=== PATIENT | female | born 1985 | race Caucasian/White ===

== ENCOUNTER 2016-11-25 | Emergency (ER) | payer OTHER | END 2016-11-25 14:03 | disposition home or self-care (01) ==

== ENCOUNTER 2017-04-07 21:12 | Outpatient (CLI) | payer OTHER | END 2017-04-07 21:13 | disposition critical access hospital (66) | LOC: EMS 21:12 | PROVIDERS: ATTEND Surgery | DX: R42 Dizziness and giddiness (principal); R06.02 Shortness of breath | CPT/HCPCS: A0425; A0427 ==

== ENCOUNTER 2017-04-07 21:31 | Emergency (ER) | payer OTHER ==
[2017-04-07] MEDS ORDERED: methylPREDNISolone SUCCINATE 125 MG/2 ML VIAL IVP STA (22:50)
--- NOTE | 2017-04-07 22:50 | ED Physician Documentation ---
History of Present Illness - Stated complaint Stated Complaint: ALLERGIC RXN - Chief complaint Chief Complaint: Resp - History obtained from History obtained from: Patient, EMS - History of Present Illness Timing: Enter time (20:45), Today Pain level now: 0 Improved by: improved subsequent to use of epi-pen - Additonal information Additional information: while in a class this evening, patient experienced sudden onset lightheadedness , dizziness, decreased vision ("black spots", per patient), generalized pruritis and generalized skin erythema. Patient says this was all c/w previous allergic reactions (unclear what she might have been reacting to tonight, although patient suspects it was due to dust), and thus patient self- administered epi-pen with substantial improvement in symptoms. Denies dyspnea, had mild chest tightness which has resolved. Review of Systems Eyes: reports: Decreased vision Cardiac: reports: Chest pain / pressure (resolved). denies: Palpitations Respiratory: denies: Dyspnea GI: denies: Abdominal Pain, Nausea, Vomiting Neurologic: reports: Generalized weakness, Near syncope. denies: Focal weakness , Numbness, Syncope, Headache PD PAST MEDICAL HISTORY - Past Medical History Endocrine/Autoimmune: HyPOthyroidism Other Past Medical History: carmen dz, exercise induced asthma - Past Surgical History Past Surgical History: Yes HEENT: Tonsil/Adenoidectomy - Present Medications Home Medications: Ambulatory Orders Medication Instructions Recorded Confirmed Amox/Clav 875/125 [Augmentin] 1 each PO Q12H 14 Days 11/25/16 Azelastine HCl 11/25/16 Cetirizine [ZyrTEC] 1 tab PO DAILY 11/25/16 11/25/16 Fluticasone [Flonase] 1 applic DANK DAILY 11/25/16 11/25/16 Guaifenesin/Pseudoephedrne HCl 1 each PO BID PRN #20 tab.er.12h 11/25/16 [Mucinex D ER 600-60 mg Tablet] Levonorgestrel-Ethin Estradiol 1 tab PO DAILY 11/25/16 11/25/16 [Levora-28 Tablet] Levothyroxine Sodium [Synthroid] 1 tab PO DAILY 11/25/16 11/25/16 Mometasone Furoate [Nasonex] 1 spray NS BID #1 spray.pump 11/25/16 Montelukast [Singulair] 1 tab PO DAILY 11/25/16 11/25/16 predniSONE [Deltasone] 60 mg PO DAILY 5 Days 11/25/16 Prednisone 40 mg PO DAILY 3 Days 04/07/17 hydrOXYzine PAMOATE [Vistaril] 25 - 50 mg PO Q6H PRN #20 capsule 04/07/17 - Allergies Allergies/Adverse Reactions: Allergies Allergy/AdvReac Type Severity Reaction Status Date / Time No Known Drug Allergies Allergy Verified 11/25/16 13:23 - Social History Does the pt smoke?: No Smoking Status: Never smoker Does the pt drink ETOH?: Yes PD ED PE NORMAL - Vitals Vital signs reviewed: Yes - General General: Alert and oriented X 3, No acute distress, Well developed/nourished - HEENT HEENT: Moist mucous membranes - Cardiac Cardiac: RRR, No murmur - Respiratory Respiratory: No respiratory distress, Clear bilaterally - Abdomen Abdomen: Soft, Non tender - Derm Derm: Normal color, Warm and dry, No rash Results - Vitals Vitals: Vital Signs - 24 hr 04/07/17 04/07/17 04/07/17 21:38 22:16 23:09 Temperature 36.3 C L Heart Rate 92 94 95 Respiratory 18 18 18 Rate Blood Pressure 145/82 H 149/74 H 161/78 H O2 Saturation 100 100 98 Oxygen O2 Source Room air PD MEDICAL DECISION MAKING - ED course Complexity details: considered differential, d/w patient Departure - Departure Disposition: 01 Home, Self Care Clinical Impression: Allergic reaction Condition: Good Instructions: ED Allergic Reaction General Other Follow-Up: Ellen Knutson MD [Primary Care Provider] - Within 3 Days Prescriptions: Prednisone 40 mg PO DAILY 3 Days hydrOXYzine PAMOATE [Vistaril] 25 - 50 mg PO Q6H PRN #20 capsule PRN Reason: Allergy Symptoms Discharge Date/Time: 04/07/17 23:11
[2017-04-07] MEDS ORDERED: methylPREDNISolone SUCCINATE 125 MG/2 ML VIAL IVP ONE (22:58)
[2017-04-07 23:11] VITALS: BP 161/78
== END 2017-04-07 23:11 | disposition home or self-care (01) ==
LOC: EDUNIT# → ED 21:31
DX: T78.40XA Allergy, unspecified, initial encounter (principal); Z79.52 Long term (current) use of systemic steroids; E06.3 Autoimmune thyroiditis
CPT/HCPCS: 96374; 99283; 99284

== ENCOUNTER 2017-07-04 15:48 | Outpatient (CLI) | payer OTHER ==
--- NOTE | 2017-07-04 18:17 | MRI Report ---
EXAM: RIGHT WRIST MRI WITHOUT CONTRAST EXAM DATE: 07/04/2017 04:51 PM. CLINICAL HISTORY: Right wrist weakness with cysts. 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 COMPARISON: None. TECHNIQUE: Multiplanar, multisequence T1-weighted and fluid-sensitive sequences of the wrist without contrast. Other: None. FINDINGS: Bones: There are no visible fractures. There is ulnar negative variance. Cartilage: The articular cartilage is unremarkable. There is increased T1 and T2 signal in the TFC colon ggesting degenerative change. Ligaments: The scapholunate and lunotriquetral ligaments are intact. The visualized other intrinsic, extrinsic and collateral ligaments are unremarkable. Tendons: There is slightly increased T2 signal in the extensor digitorum tendon sheaths, which may in dicate mild tenosynovitis posterior to the dorsal surface of the distal radius. Musculature: No edema or fatty atrophy. Other: There is a 2 mm x 4 mm ganglion cyst projecting anteriorly from the second and third carpometa carpal joints, effacing the posterior surface of the carpal tunnel. There is high T2 signal in the me tien nerve within the carpal tunnel. The findings are suggestive of carpal tunnel syndrome. The remai marielle contents of the carpal tunnel appear unremarkable. There is a small mid carpal and radiocarpal j oint effusion. There is a 5 mm diameter multiloculated ganglion cyst anterior to the radial styloid process. IMPRESSION: 1. Increased median nerve T2 signal within the carpal tunnel suggestive of carpal tunnel syndrome. 2. Small ganglion cyst projects anteriorly into the carpal tunnel. 3. Possible mild tenosynovitis of the extensor digitorum tendon sheaths. 4. Small mid carpal and radiocarpal joint effusions. 5. Ulnar negative variance. 6. Moderate degenerative change of the TFC without a visible tear. [facility] MUSCULOSKELET[facility]IOLOGY SECTION Referring Provider Line: [phone] SITE ID: [id number]
== END 2017-07-04 15:49 | disposition home or self-care (01) ==
LOC: DI 15:48
PROVIDERS: ATTEND Nurse Practitioner Family
DX: M25.831 Other specified joint disorders, right wrist (principal); M67.431 Ganglion, right wrist

== ENCOUNTER 2018-03-16 21:00 | Outpatient (CLI) | payer OTHER | END 2018-03-16 21:01 | disposition critical access hospital (66) | LOC: EMS 21:00 | PROVIDERS: ATTEND Surgery | DX: R06.02 Shortness of breath (principal); R42 Dizziness and giddiness | CPT/HCPCS: A0425; A0429 ==

== ENCOUNTER 2018-03-16 21:45 | Emergency (ER) | payer OTHER ==
[2018-03-16] MEDS ORDERED: IPRATROPIUM/ALBUTEROL 3 ML NEB INH STA (21:57)
[2018-03-16] MEDS ORDERED: diphenhydrAMINE INJ 50 MG/ML VIAL IVP STA (21:57)
[2018-03-16] MEDS ORDERED: ONDANSETRON 4 MG/2 ML VIAL IVP STA (21:57)
[2018-03-16] MEDS ORDERED: DEXAMETHASONE 10 MG/ML VIAL IVP STA (21:57)
[2018-03-16] MEDS ORDERED: SODIUM CHLORIDE 0.9% 1,000 ML IV ONE (21:57)
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
[2018-03-16 23:18] VITALS: BP 162/91
== END 2018-03-16 23:17 | disposition home or self-care (01) ==
LOC: EDUNIT# → ED 21:45
DX: T78.49XA Other allergy, initial encounter (principal); J45.41 Moderate persistent asthma with (acute) exacerbation; E03.9 Hypothyroidism, unspecified
CPT/HCPCS: 94640; 94664; 96361; 96374; 99283; 99284; J1200

== ENCOUNTER 2018-06-23 14:48 | Emergency (ER) | payer OTHER ==
[2018-06-23] MEDS ORDERED: IBUPROFEN 800 MG TABLET PO STA (15:49)
[2018-06-23] MEDS ORDERED: DEXAMETHASONE 10 MG/ML VIAL PO STA (15:50)
[2018-06-23] MEDS ORDERED: CHERRY SYRUP 10 ML UDC PO ONE (15:54)
--- NOTE | 2018-06-23 16:29 | XRAY Report ---
Procedure Date: 06/23/2018 Accession Number: [id number] / [id number] Procedure: XR - Chest 2 View X-Ray CPT Code: 26298 FULL RESULT: EXAM: CHEST RADIOGRAPHY EXAM DATE: 06/23/2018 04:18 PM. CLINICAL HISTORY: Cough, shortness of breath and chest pain for 3 days. COMPARISON: None. TECHNIQUE: 2 views. FINDINGS: Lungs/Pleura: No focal opacities evident. No pleural effusion. No pneumothorax. Normal volumes. Mediastinum: Heart and mediastinal contours are unremarkable. Other: None. IMPRESSION: Normal 2-view chest radiography. [facility]
--- NOTE | 2018-06-23 16:39 | ED Physician Documentation ---
PD HPI URI - Stated complaint Stated Complaint: COUGH/LIGHTHEADED/SOA - Chief complaint Chief Complaint: Resp - History obtained from History obtained from: Patient - History of Present Illness Timing - onset: How many days ago (3) Timing duration: Days (3) Timing details: Gradual onset Associated symptoms: Sore throat, Productive cough Similar symptoms before: Has not had sx before - Additional information Additional information: The patient is a 32-year-old female who presents with productive cough of 3 days ' duration. She denies fever or dyspnea. She does report anterior chest discomfort and sore throat, as well as headache and myalgias. She denies abdominal pain, nausea or vomiting. She denies history of similar symptoms in the past. She does not smoke cigarettes. Review of Systems Constitutional: denies: Fever Eyes: denies: Irritation Ears: denies: Ear pain Nose: reports: Congestion Throat: reports: Sore throat Cardiac: reports: Chest pain / pressure (with inspiration.) Respiratory: reports: Cough. denies: Dyspnea GI: denies: Abdominal Pain, Nausea, Vomiting : denies: Dysuria Skin: denies: Rash Musculoskeletal: denies: Back pain Neurologic: reports: Headache. denies: Focal weakness, Numbness PD PAST MEDICAL HISTORY - Past Medical History Cardiovascular: None Respiratory: Other Endocrine/Autoimmune: HyPOthyroidism Psych: ADD/ADHD Musculoskeletal: Other Other Past Medical History: Pinched nerve in clavical. Plantar fasciatis - Past Surgical History Past Surgical History: Yes Ortho: Other HEENT: Tonsil/Adenoidectomy - Present Medications Home Medications: Ambulatory Orders Medication Instructions Recorded Confirmed Amox/Clav 875/125 [Augmentin] 1 each PO Q12H 14 Days tablet 11/25/16 Azelastine HCl 11/25/16 Cetirizine [ZyrTEC] 1 tab PO DAILY 11/25/16 11/25/16 Fluticasone [Flonase] 1 applic DANK DAILY 11/25/16 11/25/16 Guaifenesin/Pseudoephedrne HCl 1 each PO BID PRN #20 tab.er.12h 11/25/16 [Mucinex D ER 600-60 mg Tablet] Levonorgestrel-Ethin Estradiol 1 tab PO DAILY 11/25/16 11/25/16 [Levora-28 Tablet] Levothyroxine Sodium [Synthroid] 1 tab PO DAILY 11/25/16 11/25/16 Mometasone Furoate [Nasonex] 1 spray NS BID #1 spray.pump 11/25/16 Montelukast [Singulair] 1 tab PO DAILY 11/25/16 11/25/16 predniSONE [Deltasone] 60 mg PO DAILY 5 Days tablet 11/25/16 hydrOXYzine PAMOATE [Vistaril] 25 - 50 mg PO Q6H PRN #20 capsule 04/07/17 predniSONE [Prednisone] 40 mg PO DAILY 3 Days tablet 04/07/17 Albuterol Sulf [Ventolin Hfa 1 - 2 puffs INH Q4HR PRN #1 inhaler 03/16/18 Inhaler] Dexamethasone [Decadron] 4 mg PO DAILY #7 tablet 03/16/18 predniSONE [Prednisone] 30 mg PO DAILY #15 tablet 06/23/18 - Allergies Allergies/Adverse Reactions: Allergies Allergy/AdvReac Type Severity Reaction Status Date / Time No Known Drug Allergies Allergy Verified 06/23/18 15:07 - Social History Does the pt smoke?: No Smoking Status: Never smoker Does the pt drink ETOH?: Yes Does the pt have substance abuse?: No - Immunizations Immunizations are current?: Yes - POLST Patient has POLST: No PD ED PE NORMAL - Vitals Vital signs reviewed: Yes (hypertensive) - General General: Alert and oriented X 3, Well developed/nourished, Other (overweight) - HEENT HEENT: Atraumatic, Pharynx benign - Neck Neck: Supple, no meningeal sign, No adenopathy, No JVD - Cardiac Cardiac: RRR - Respiratory Respiratory: Clear bilaterally - Abdomen Abdomen: Soft, Non tender - Back Back: No CVA TTP - Derm Derm: No rash - Extremities Extremities: No edema, No calf tenderness / cord - Neuro Neuro: Alert and oriented X 3, No motor deficit, Normal speech Results - Vitals Vitals: Oxygen O2 Source Room air - Rads (name of study) CXR Radiology: Prelim report reviewed, EMP read contemporaneously, See rad report ( Normal 2 view chest radiography.) PD MEDICAL DECISION MAKING - ED course Complexity details: reviewed results, re-evaluated patient, considered differential, d/w patient ED course: The patient's presentation is most consistent with acute viral upper respiratory infection and pharyngitis. Her presentation does not suggest tonsillitis, peritonsillar abscess, or pneumonia. Chest x-ray is negative. Treatment in the emergency department included administration of dexamethasone 10 mg orally, and ibuprofen 800 mg orally. She is being discharged with prescription for prednisone. I discussed with her the lack of clinical indication for antibiotic therapy. I discussed with her the expected course of illness, symptomatic treatment and outpatient follow-up, as well as potentially worrisome signs or symptoms that should prompt reevaluation in the emergency department. - Sepsis Event Vital Signs: Oxygen O2 Source Room air Departure - Departure Disposition: Home, Self Care Clinical Impression: Viral URI with cough, Sore throat (viral) Condition: Stable Instructions: ED URI Viral Follow-Up: Eloise Plaafox ARNP [Primary Care Provider] - Prescriptions: predniSONE [Prednisone] 30 mg PO DAILY #15 tablet Comments: Take ibuprofen, up to 800 mg 3 times daily for its anti-inflammatory effect. You can use prednisone daily as prescribed. Follow up with your primary physician within 2 weeks. Call to schedule appointment. Return to the emergency department if you develop increasing difficulty breathing, or otherwise worsening symptoms. Discharge Date/Time: 06/23/18 16:55
[2018-06-23 16:53] VITALS: BP 147/84
== END 2018-06-23 16:55 | disposition home or self-care (01) ==
LOC: ED 14:48
DX: J06.9 Acute upper respiratory infection, unspecified (principal)
CPT/HCPCS: 71046; 99283; A9270

== ENCOUNTER 2020-07-26 14:40 | Emergency (ER) | payer OTHER ==
[2020-07-26 14:49] VITALS: BP 174/88
[2020-07-26] MEDS ORDERED: IPRATROPIUM/ALBUTEROL 3 ML NEB INH STA (14:51)
[2020-07-26] MEDS ORDERED: CHERRY SYRUP 10 ML UDC PO ONE (14:52)
[2020-07-26] MEDS ORDERED: DEXAMETHASONE 10 MG/ML VIAL PO STA (14:52)
[2020-07-26] MEDS ORDERED: IBUPROFEN 800 MG TABLET PO STA (14:52)
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
== END 2020-07-26 16:00 | disposition home or self-care (01) ==
LOC: ED 14:40
DX: J45.21 Mild intermittent asthma with (acute) exacerbation (principal); E03.9 Hypothyroidism, unspecified
CPT/HCPCS: 94640; 99283; A9270

== ENCOUNTER 2020-11-09 12:06 | Emergency (ER) | payer OTHER ==
[2020-11-09] MEDS ORDERED: BAMLANIVIMAB 700 MG in SODIUM CHLORIDE 0.9% 180 ML IV ONE (14:00)
--- NOTE | 2020-11-09 16:31 | ED Physician Documentation ---
History of Present Illness - Stated complaint Stated Complaint: C+ - Chief complaint Chief Complaint: Heent - History obtained from History obtained from: Patient - Additonal information Additional information: 4-year-old woman with positive family exposure to Covid presents with Covid-like symptoms for the past couple days of body aches, headache, nausea and generalized weakness. She does have a history of hypothyroidism, asthma, seasonal allergies and obesity.Denies shortness of breath, cough, diarrhea. +chills. no fever Review of Systems Ten Systems: 10 systems reviewed and negative Constitutional: reports: Chills, Myalgias, Fatigue PD PAST MEDICAL HISTORY - Past Medical History Past Medical History: Yes Cardiovascular: None Respiratory: Other Endocrine/Autoimmune: HyPOthyroidism Psych: ADD/ADHD Musculoskeletal: Other - Past Surgical History Past Surgical History: Yes Ortho: Other HEENT: Tonsil/Adenoidectomy - Present Medications Home Medications: Ambulatory Orders Medication Instructions Recorded Confirmed Amox/Clav 875/125 [Augmentin] 1 each PO Q12H 14 Days tablet 11/25/16 Azelastine HCl 11/25/16 Cetirizine [ZyrTEC] 1 tab PO DAILY 11/25/16 11/25/16 Fluticasone [Flonase] 1 applic DANK DAILY 11/25/16 11/25/16 Guaifenesin/Pseudoephedrne HCl 1 each PO BID PRN #20 tab.er.12h 11/25/16 [Mucinex D ER 600-60 mg Tablet] Levonorgestrel-Ethin Estradiol 1 tab PO DAILY 11/25/16 11/25/16 [Levora-28 Tablet] Levothyroxine Sodium [Synthroid] 1 tab PO DAILY 11/25/16 11/25/16 Mometasone Furoate [Nasonex] 1 spray NS BID #1 spray.pump 11/25/16 Montelukast [Singulair] 1 tab PO DAILY 11/25/16 11/25/16 predniSONE [Deltasone] 60 mg PO DAILY 5 Days tablet 11/25/16 hydrOXYzine PAMOATE [Vistaril] 25 - 50 mg PO Q6H PRN #20 capsule 04/07/17 predniSONE [Prednisone] 40 mg PO DAILY 3 Days tablet 04/07/17 Albuterol Sulf [Ventolin Hfa 1 - 2 puffs INH Q4HR PRN #1 inhaler 05/03/18 Inhaler] dexAMETHasone [Decadron] 4 mg PO DAILY #7 tablet 03/16/18 predniSONE [Prednisone] 30 mg PO DAILY #15 tablet 06/23/18 Albuterol Sulfate [Proair Hfa 1 - 2 puffs INH Q4H PRN #1 inhaler 07/26/20 Inhaler] EPINEPHrine [Epinephrine] 0.3 mg IJ ONCE PRN #2 auto.injct 07/26/20 Ipratropium/Albuterol [Combivent 1 puffs IH QID PRN #1 aer.w.adap 07/26/20 Respimat] dexAMETHasone [Decadron] 4 mg PO BIDWM #14 tablet 07/26/20 - Allergies Allergies/Adverse Reactions: Allergies Allergy/AdvReac Type Severity Reaction Status Date / Time No Known Drug Allergies Allergy Verified 11/09/20 12:39 - Social History Does the pt smoke?: No Smoking Status: Never smoker Does the pt drink ETOH?: Yes Does the pt have substance abuse?: No - Immunizations Immunizations are current?: Yes - POLST Patient has POLST: No PD ED PE NORMAL - Vitals Vital signs reviewed: Yes - General General: Alert and oriented X 3 - HEENT HEENT: Atraumatic, PERRL, EOMI - Neck Neck: Supple, no meningeal sign - Cardiac Cardiac: RRR - Respiratory Respiratory: No respiratory distress - Abdomen Abdomen: Normal bowel sounds, Non tender, Non distended - Female Female : Deferred - Rectal Rectal: Deferred - Back Back: No CVA TTP - Derm Derm: Normal color, Warm and dry - Extremities Extremities: No deformity - Neuro Neuro: Alert and oriented X 3 - Psych Psych: Normal mood, Normal affect Results - Vitals Vitals: Vital Signs - 24 hr 11/09/20 11/09/20 12:35 16:43 Temperature 36.9 C 36.9 C Heart Rate 70 74 Respiratory 20 18 Rate Blood Pressure 136/83 H 136/80 H O2 Saturation 100 99 Oxygen O2 Source Room air PD MEDICAL DECISION MAKING - ED course ED course: 34-year-old woman presents with presumed Covid. Monoclonal antibody offered for protection against the spike protein. Patient accepted after being presented with CDC information. Education given about further symptomatic care for Covid. Strict return precautions given. Patient will follow up telehealth with her primary doctor. Departure - Departure Disposition: 01 Home, Self Care Clinical Impression: COVID-19, Generalized body aches, Headache Condition: Good Instructions: ED Viral Syndrome Comments: You have been treated in the emergency room for a presumed COVID infection. Return to the ED for any new or worsening symptoms. Follow-up over the phone with your doctor. They may want to do a virtual appointment with you. Discharge Date/Time: 11/09/20 16:44
[2020-11-09 16:44] VITALS: BP 136/80
== END 2020-11-09 16:44 | disposition home or self-care (01) ==
LOC: ED 12:06
DX: U07.1 COVID-19 (principal); R53.1 Weakness; R51.9 Headache, unspecified
CPT/HCPCS: 87635; 99284; Q0239

== ENCOUNTER 2021-11-17 22:03 | Emergency (ER) | payer OTHER ==
--- NOTE | 2021-11-17 22:51 | ED Physician Documentation ---
History of Present Illness - Stated complaint Stated Complaint: COVID SYPTOMS - Chief complaint Chief Complaint: Resp - History obtained from History obtained from: Patient - History of Present Illness Timing: How many days ago (2) Improved by: nothing Worsened by: no exacerbating factors - Additonal information Additional information: c/o 2 days of productive cough, sore throat, sinus pain, decreased appetite, fatigue, and fevers (fever started today). She is COVID vaccinated (two doses [employer]) but not boosted Review of Systems Constitutional: reports: Fever, Chills, Myalgias, Fatigue, Sweats Nose: reports: Sinus pressure / pain Throat: reports: Sore throat Cardiac: reports: Reviewed and negative Respiratory: reports: Cough. denies: Dyspnea, Wheezing GI: reports: Diarrhea. denies: Abdominal Pain : denies: Now EGA PD PAST MEDICAL HISTORY - Past Medical History Cardiovascular: None Respiratory: Other Endocrine/Autoimmune: HyPOthyroidism Psych: ADD/ADHD Musculoskeletal: Other - Past Surgical History Past Surgical History: Yes Ortho: Other HEENT: Tonsil/Adenoidectomy - Present Medications Home Medications: Ambulatory Orders Medication Instructions Recorded Confirmed Amox/Clav 875/125 [Augmentin] 1 each PO Q12H 14 Days tablet 11/25/16 Azelastine HCl 11/25/16 Cetirizine [ZyrTEC] 1 tab PO DAILY 11/25/16 11/25/16 Fluticasone [Flonase] 1 applic DANK DAILY 11/25/16 11/25/16 Guaifenesin/Pseudoephedrne HCl 1 each PO BID PRN #20 tab.er.12h 11/25/16 [Mucinex D ER 600-60 mg Tablet] Levonorgestrel/Ethin.estradiol 1 tab PO DAILY 11/25/16 11/25/16 [Levora-28 Tablet] Levothyroxine Sodium [Synthroid] 1 tab PO DAILY 11/25/16 11/25/16 Mometasone Furoate [Nasonex] 1 spray NS BID #1 spray.pump 11/25/16 Montelukast [Singulair] 1 tab PO DAILY 11/25/16 11/25/16 predniSONE [Deltasone] 60 mg PO DAILY 5 Days tablet 11/25/16 hydrOXYzine PAMOATE [Vistaril] 25 - 50 mg PO Q6H PRN #20 capsule 04/07/17 predniSONE [Prednisone] 40 mg PO DAILY 3 Days tablet 04/07/17 Albuterol Sulf [Ventolin Hfa 1 - 2 puffs INH Q4HR PRN #1 inhaler 03/16/18 Inhaler] dexAMETHasone [Decadron] 4 mg PO DAILY #7 tablet 03/16/18 predniSONE [Prednisone] 30 mg PO DAILY #15 tablet 06/23/18 Albuterol Sulfate [Proair Hfa 1 - 2 puffs INH Q4H PRN #1 inhaler 07/26/20 Inhaler] EPINEPHrine [Epinephrine] 0.3 mg IJ ONCE PRN #2 auto.injct 07/26/20 Ipratropium/Albuterol [Combivent 1 puffs IH QID PRN #1 aer.w.adap 07/26/20 Respimat] dexAMETHasone [Decadron] 4 mg PO BIDWM #14 tablet 07/26/20 - Allergies Allergies/Adverse Reactions: Allergies Allergy/AdvReac Type Severity Reaction Status Date / Time No Known Drug Allergies Allergy Verified 11/17/21 22:20 - Social History Does the pt smoke?: No Smoking Status: Never smoker Does the pt drink ETOH?: Yes Does the pt have substance abuse?: No - Immunizations Immunizations are current?: Yes - POLST Patient has POLST: No PD ED PE NORMAL - Vitals Vital signs reviewed: Yes - General General: Alert and oriented X 3, No acute distress, Well developed/nourished - Neck Neck: Supple, no meningeal sign - Cardiac Cardiac: RRR, No murmur - Respiratory Respiratory: No respiratory distress, Clear bilaterally - Abdomen Abdomen: Soft, Non tender - Back Back: No CVA TTP Results - Vitals Vitals: Oxygen O2 Source Room air - Labs Labs: Laboratory Tests 11/17/21 23:05 Nasal Adenovirus (PCR) NOT DETECTED Nasal B. parapertussis DNA (PCR) NOT DETECTED Nasal Coronavir 229E PCR NOT DETECTED Nasal Coronavir HKU1 PCR NOT DETECTED Nasal Coronavir NL63 PCR NOT DETECTED Nasal Coronavir OC43 PCR NOT DETECTED Nasal Enterovir/Rhinovir PCR NOT DETECTED Nasal Influenza B PCR NOT DETECTED Nasal Influenza A PCR NOT DETECTED Nasal Parainfluen 1 PCR NOT DETECTED Nasal Parainfluen 2 PCR NOT DETECTED Nasal Parainfluen 3 PCR NOT DETECTED Nasal Parainfluen 4 PCR NOT DETECTED Nasal RSV (PCR) NOT DETECTED Nasal B.pertussis DNA PCR NOT DETECTED Nasal C.pneumoniae (PCR) NOT DETECTED Dank Human Metapneumo PCR NOT DETECTED Nasal M.pneumoniae (PCR) NOT DETECTED Nasal SARS-CoV-2 (PCR) DETECTED A - Rads (name of study) chest xray Radiology: Prelim report reviewed, See rad report PD MEDICAL DECISION MAKING - ED course Complexity details: reviewed results, re-evaluated patient, considered differential, d/w patient ED course: c/o symptoms s/o viral syndrome and PCR respiratory viral panel is positive for COVID. Clear lungs on exam, normal room air pulse ox and normal cxr. Discussed results, return precautions discussed and advised to follow CDC isolation guidelines Departure - Departure Disposition: 01 Home, Self Care Clinical Impression: COVID-19 Condition: Good Instructions: ED Viral Syndrome Follow-Up: RACHELLE OLPEZ PA-C [Primary Care Provider] - Within 1 week (Call your primary care provider's office and inform them that you have tested positive for COVID-19. Office practices vary regarding follow-up for COVID-19; they will likely be able to reevaluate you over the phone or, if offered, via video appointment.) Comments: You have tested positive for COVID-19. Fortunately, at this time, your oxygen level is perfect and your chest xray does not show any evidence of lower respiratory tract involvement (pneumonia). You will need to isolate according to the latest CDC guidelines. Check the CDC website, as the guidelines are periodically revised. https://www.cdc.gov/coronavirus/2019-ncov/your-health/quarantine-isolation.html# isolation Forms: Activity restrictions Discharge Date/Time: 11/18/21 01:06
--- NOTE | 2021-11-17 23:48 | XRAY Report ---
PROCEDURE: Chest 2 View X-Ray INDICATIONS: cough, fever TECHNIQUE: 2 views of the chest. COMPARISON: 06/23/2018. FINDINGS: Surgical changes and devices: None. Lungs and pleura: No pleural effusions or pneumothorax. Lungs are clear. Mediastinum: Mediastinal contours are normal. Heart size is normal. Bones and chest wall: No suspicious bony abnormalities. Soft tissues appear unremarkable. IMPRESSION: 1. No acute cardiopulmonary disease. Reviewed by: Santos Jurado MD on 11/17/2021 11:47 PM [facility] Approved by: Santos Jurado MD on 11/17/2021 11:47 PM [facility] Station ID: [id number]
[2021-11-18 00:27] LABS: CORONAVIRUS 229E-RESP PCR NOT DETECTED; CORONAVIRUS HKU1-RESP PCR NOT DETECTED; CORONAVIRUS NL63-RESP PCR NOT DETECTED; CORONAVIRUS OC43-RESP PCR NOT DETECTED; SARS-CoV-2 -RESP PCR PANEL DETECTED
[2021-11-18 00:28] LABS: B. PARAPERTUSSIS- RESP PCR PAN NOT DETECTED; B. PERTUSSIS- RESP PCR PANEL NOT DETECTED; C. PNEUMONIAE- RESP PCR PANEL NOT DETECTED; HUMAN METAPNEUMOVIRUS NOT DETECTED; INFLUENZA A- RESP PCR PANEL NOT DETECTED; INFLUENZA B - RESP PCR PANEL NOT DETECTED; M. PNEUMONIAE- RESP PCR PANEL NOT DETECTED; PARAINFLUENZA VIRUS 1 NOT DETECTED; PARAINFLUENZA VIRUS 2 NOT DETECTED; PARAINFLUENZA VIRUS 3 NOT DETECTED; PARAINFLUENZA VIRUS 4 NOT DETECTED; RHINOVIRUS/ENTEROVIRUS NOT DETECTED; RSV- RESP PCR PANEL NOT DETECTED
[2021-11-18] MEDS ORDERED: ACETAMINOPHEN 325 MG TABLET PO STA (00:50)
[2021-11-18 01:06] VITALS: BP 150/95
== END 2021-11-18 01:06 | disposition home or self-care (01) ==
LOC: ED 22:03 → SUPCPDRO 22:03 → ED 11-18 01:06
DX: U07.1 COVID-19 (principal)
CPT/HCPCS: 0202U; 71046; 99282; 99284; A9270

== ENCOUNTER 2022-09-01 05:53 | Emergency (ER) | payer OTHER ==
[2022-09-01 06:08] VITALS: BP 149/93
[2022-09-01] MEDS ORDERED: DEXAMETHASONE 10 MG/ML VIAL IM STA (06:16)
[2022-09-01] MEDS ORDERED: ALBUTEROL NEB 2.5 MG/3 ML INH STA (06:16)
--- NOTE | 2022-09-01 06:21 | ED Physician Documentation ---
History of Present Illness - Stated complaint Stated Complaint: SOA - Chief complaint Chief Complaint: Resp - History obtained from History obtained from: Patient - Additonal information Additional information: 36-year-old woman with history of seasonal allergies, reactive airways, multiple bouts of COVID, Presents with shortness of breath and nonproductive cough over the past several days she attributes to the bad air quality.Patient denies fever, hemoptysis, leg swelling, other symptoms. no relief with home albuterol pump. Review of Systems Ten Systems: 10 systems reviewed and negative Constitutional: denies: Fever Cardiac: denies: Chest pain / pressure Respiratory: reports: Dyspnea, Cough GI: denies: Nausea PD PAST MEDICAL HISTORY - Past Medical History Past Medical History: Yes Cardiovascular: None Respiratory: Asthma, Other Neuro: None Endocrine/Autoimmune: HyPOthyroidism GI: None CRA OFFICER: None : None HEENT: None Psych: ADD/ADHD Musculoskeletal: Other Derm: None - Past Surgical History Past Surgical History: Yes Ortho: Other HEENT: Tonsil/Adenoidectomy - Present Medications Home Medications: Ambulatory Orders Medication Instructions Recorded Confirmed Cetirizine [ZyrTEC] 1 tab PO DAILY 11/25/16 09/01/22 Fluticasone [Flonase] 1 applic DANK DAILY 11/25/16 09/01/22 Guaifenesin/Pseudoephedrne HCl 1 each PO BID PRN #20 tab.er.12h 11/25/16 [Mucinex D ER 600-60 mg Tablet] Levonorgestrel/Ethin.estradiol 1 tab PO DAILY 11/25/16 09/01/22 [Levora-28 Tablet] Levothyroxine Sodium [Synthroid] 1 tab PO DAILY 11/25/16 09/01/22 Mometasone Furoate [Nasonex] 1 spray NS BID #1 spray.pump 11/25/16 09/01/22 Montelukast [Singulair] 1 tab PO DAILY 11/25/16 09/01/22 Albuterol Sulf [Ventolin Hfa 1 - 2 puffs INH Q4HR PRN #1 inhaler 03/16/18 09/01/22 Inhaler] Albuterol Sulfate [Proair Hfa 1 - 2 puffs INH Q4H PRN #1 inhaler 07/26/20 09/01/22 Inhaler] EPINEPHrine [Epinephrine] 0.3 mg IJ ONCE PRN #2 auto.injct 07/26/20 Ipratropium/Albuterol [Combivent 1 puffs IH QID PRN #1 aer.w.adap 07/26/20 Respimat] - Allergies Allergies/Adverse Reactions: Allergies Allergy/AdvReac Type Severity Reaction Status Date / Time No Known Drug Allergies Allergy Verified 09/01/22 06:05 - Social History Does the pt smoke?: No Smoking Status: Never smoker Does the pt drink ETOH?: Yes Does the pt have substance abuse?: No - Immunizations Immunizations are current?: Yes - POLST Patient has POLST: No PD ED PE NORMAL - Vitals Vital signs reviewed: Yes - General General: Alert and oriented X 3, No acute distress, Well developed/nourished - HEENT HEENT: Atraumatic, PERRL, EOMI, Moist mucous membranes, Pharynx benign - Cardiac Cardiac: RRR - Respiratory Respiratory: Other (scant BL expiratory wheezing) - Abdomen Abdomen: Non tender, Non distended - Derm Derm: Normal color, Warm and dry - Extremities Extremities: No deformity - Neuro Neuro: No motor deficit, No sensory deficit - Psych Psych: Normal mood, Normal affect Results - Vitals Vitals: Vital Signs - 24 hr 09/01/22 06:02 Temperature 36.5 C Heart Rate 88 Respiratory 20 Rate Blood Pressure 149/93 H O2 Saturation 98 Oxygen O2 Source Room air PD MEDICAL DECISION MAKING - ED course ED course: 36-year-old woman presents with subjective shortness of breath and scant wheezing on exam. Will trial albuterol nebulizer and steroids. Departure - Departure Clinical Impression: Wheezing, Shortness of breath, Cough Condition: Good Instructions: ED Dyspnea Shortness of Breath Comments: You were seen in the emergency department for shortness of breath and received a nebulized albuterol treatment as well as a one-time steroid shot. This will stay in your system for 3 days and should calm down inflammation in the airways. Please stay inside while the air quality is bad and buy an air purifier for the home. Return to the emergency department if you have any new or worsening symptoms or other concerns. Follow-up with your primary care provider.
== END 2022-09-01 07:29 | disposition home or self-care (01) ==
LOC: ED 05:53
DX: R06.2 Wheezing (principal); R06.02 Shortness of breath; R05.9 Cough, unspecified
CPT/HCPCS: 94640; 94664; 96372; 99283; 99284

== ENCOUNTER 2024-01-04 12:31 | Outpatient (CLI) | payer OTHER ==
[2024-01-04 12:47] LABS: BASOPHILS # (AUTO) 0.1 10^3/uL (0.0-0.1); BASOPHILS % (AUTO) 0.6 %; EOSINOPHILS # (AUTO) 0.1 10^3/uL (0.0-0.7); EOSINOPHILS % (AUTO) 0.9 %; HCT - HEMATOCRIT 40.7 % (37.0-47.0); HGB - HEMOGLOBIN 12.8 g/dL (12.0-16.0); LYMPHOCYTES # (AUTO) 3.8 10^3/uL (1.5-3.5); MEAN CORPUSCULAR HEMOGLOBIN 26.5 pg (27.0-31.0); MEAN CORPUSCULAR HGB CONC 31.4 g/dL (32.0-36.0); MEAN CORPUSCULAR VOLUME 84.3 fL (81.0-99.0); MEAN PLATELET VOLUME 8.8 fL (7.9-10.8); MONOCYTES # (AUTO) 0.8 10^3/uL (0.0-1.0); NEUTROPHILS # (AUTO) 11.1 10^3/uL (1.5-6.6); NEUTROPHILS % (AUTO) 69.2 %; PLT - PLATELET COUNT 465 10^3/uL (130-450); RED BLOOD COUNT 4.83 10^6/uL (4.20-5.40); RED CELL DISTRIBUTION WIDTH 14.6 % (12.0-15.0)
[2024-01-04 13:13] LABS: ALBUMIN 4.3 g/dL (3.2-5.5); ALBUMIN/GLOBULIN RATIO 1.3 (1.0-2.2); BILIRUBIN,TOTAL 0.3 mg/dL (0.2-1.0); CALCIUM 9.7 mg/dL (8.5-10.3); CREATININE 0.8 mg/dL (0.6-1.3); POTASSIUM 4.1 mmol/L (3.5-4.5); TOTAL PROTEIN 7.5 g/dL (6.4-8.9)
[2024-01-04 13:27] LABS: FERRITIN 43.1 ng/mL (11.0-306.8)
== END 2024-01-04 12:32 | disposition home or self-care (01) ==
LOC: LAB 12:31
PROVIDERS: ATTEND Internal Medicine Hematology & Oncology
DX: D72.829 Elevated white blood cell count, unspecified (principal); R79.89 Other specified abnormal findings of blood chemistry
CPT/HCPCS: 36415; 80053; 82728; 83540; 84466; 85025

== ENCOUNTER 2024-05-04 13:39 | Outpatient (CLI) | payer OTHER ==
[2024-05-04 17:46] LABS: BASOPHILS # (AUTO) 0.1 10^3/uL (0.0-0.1); BASOPHILS % (AUTO) 0.6 %; EOSINOPHILS # (AUTO) 0.2 10^3/uL (0.0-0.7); EOSINOPHILS % (AUTO) 1.1 %; LYMPHOCYTES # (AUTO) 3.9 10^3/uL (1.5-3.5); LYMPHOCYTES % (AUTO) 27.2 %; MEAN CORPUSCULAR HEMOGLOBIN 27.9 pg (27.0-31.0); MEAN CORPUSCULAR HGB CONC 32.6 g/dL (32.0-36.0); MEAN CORPUSCULAR VOLUME 85.8 fL (81.0-99.0); MONOCYTES # (AUTO) 0.9 10^3/uL (0.0-1.0); MONOCYTES % (AUTO) 6.4 %; NEUTROPHILS # (AUTO) 9.3 10^3/uL (1.5-6.6); NEUTROPHILS % (AUTO) 64.2 %; PLT - PLATELET COUNT 475 10^3/uL (130-450); RED BLOOD COUNT 5.01 10^6/uL (4.20-5.40); RED CELL DISTRIBUTION WIDTH 14.7 % (12.0-15.0); WHITE BLOOD COUNT 14.5 x10^3/uL (4.8-10.8)
[2024-05-04 19:00] LABS: FERRITIN 194.5 ng/mL (11.0-306.8)
== END 2024-05-04 13:40 | disposition home or self-care (01) ==
LOC: LAB.N 13:39
PROVIDERS: ATTEND Internal Medicine Hematology & Oncology
DX: D72.829 Elevated white blood cell count, unspecified (principal); R79.89 Other specified abnormal findings of blood chemistry; E61.1 Iron deficiency
CPT/HCPCS: 36415; 82728; 83540; 84466; 85025